=== PATIENT | female | born 1995 | race Caucasian/White ===

== ENCOUNTER 2017-03-17 22:36 | Emergency (ER) | payer MEDICAID ==
[~2017-03-17] VITALS: Ht 160 cm; Wt 99.3 kg
[2017-03-17 22:48] VITALS: Ht 160 cm; Wt 99.3 kg
[2017-03-18 02:20] VITALS: BP 108/57
== END 2017-03-18 02:21 | disposition home or self-care (01) ==
LOC: ED 22:36
DX: J45.909 Unspecified asthma, uncomplicated (principal)
CPT/HCPCS: J7512; J7613; J7644; Q0092

== ENCOUNTER 2017-06-30 18:16 | Emergency (ER) | payer MEDICAID ==
[~2017-06-30] VITALS: Ht 160 cm; Wt 90.7 kg
[2017-06-30 18:33] VITALS: Ht 160 cm; Wt 90.7 kg
[2017-06-30 20:01] VITALS: BP 126/83
== END 2017-06-30 20:01 | disposition home or self-care (01) ==
LOC: ED 18:16
DX: S00.83XA Contusion of other part of head, initial encounter (principal); J45.909 Unspecified asthma, uncomplicated; F20.9 Schizophrenia, unspecified; W22.01XA Walked into wall, initial encounter; Y93.89 Activity, other specified; Y92.89 Other specified places as the place of occurrence of the external cause; Y99.8 Other external cause status

== ENCOUNTER 2017-07-28 12:28 | Emergency (ER) | payer MEDICAID ==
[~2017-07-28] VITALS: Ht 160 cm; Wt 105.2 kg
[2017-07-28 12:31] VITALS: Ht 160 cm; Wt 105.2 kg
[2017-07-28 13:07] LABS: CARBON DIOXIDE 32.2 mmol/L (21-32); CHLORIDE SERUM 105 mmol/L (98-107); GFR1 > 60 mL/min; GLUCOSE SERUM 111 mg/dL (74-106); POTASSIUM SERUM 4.4 mmol/L (3.5-5.1); SODIUM SERUM 140 mmol/L (136-145)
[2017-07-28 13:57] VITALS: BP 118/72
== END 2017-07-28 13:57 | disposition home or self-care (01) ==
LOC: ED 12:28
PROVIDERS: Emergency Medicine
DX: J45.901 Unspecified asthma with (acute) exacerbation (principal); F20.9 Schizophrenia, unspecified
CPT/HCPCS: J7613; J7644; Q0092

== ENCOUNTER 2017-08-02 16:31 | Emergency (ER) | payer MEDICAID ==
[~2017-08-02] VITALS: Ht 157.5 cm; Wt 106.1 kg
[2017-08-02 16:45] VITALS: Ht 157.5 cm; Wt 106.1 kg
[2017-08-02 22:05] VITALS: BP 116/65
== END 2017-08-02 21:53 | disposition home or self-care (01) ==
LOC: ED 16:31
DX: R51 Headache (principal); F20.9 Schizophrenia, unspecified; J45.909 Unspecified asthma, uncomplicated

== ENCOUNTER 2017-09-17 18:21 | Emergency (ER) | payer MEDICAID ==
[~2017-09-17] VITALS: Ht 167.6 cm; Wt 110.2 kg
[2017-09-17 18:43] VITALS: Ht 167.6 cm; Wt 110.2 kg
[2017-09-17 19:19] VITALS: BP 139/76
== END 2017-09-17 19:19 | disposition home or self-care (01) ==
LOC: ED 18:21
DX: R42 Dizziness and giddiness (principal); T42.1X5A Adverse effect of iminostilbenes, initial encounter; J45.909 Unspecified asthma, uncomplicated; Y92.89 Other specified places as the place of occurrence of the external cause

== ENCOUNTER 2017-11-02 15:51 | Emergency (ER) | payer MEDICAID ==
[~2017-11-02] VITALS: Ht 160 cm; Wt 111.1 kg
[2017-11-02 15:57] VITALS: Ht 160 cm; Wt 111.1 kg
[2017-11-02 16:38] VITALS: BP 149/76
== END 2017-11-02 16:38 | disposition left against medical advice (07) ==
LOC: ED 15:51
DX: R33.9 Retention of urine, unspecified (principal); F20.9 Schizophrenia, unspecified; F41.9 Anxiety disorder, unspecified; J45.909 Unspecified asthma, uncomplicated; F29 Unspecified psychosis not due to a substance or known physiological condition

== ENCOUNTER 2017-11-08 18:41 | Emergency (ER) | payer MEDICAID ==
[~2017-11-08] VITALS: Ht 157.5 cm; Wt 111.1 kg
[2017-11-08 19:15] VITALS: BP 104/63; Ht 157.5 cm; Wt 111.1 kg
== END 2017-11-08 20:49 | disposition left against medical advice (07) ==
LOC: ED 18:41
DX: Z53.21 Procedure and treatment not carried out due to patient leaving prior to being seen by health care provider (principal)

== ENCOUNTER 2017-11-11 14:27 | Emergency (ER) | payer MEDICAID ==
[~2017-11-11] VITALS: Ht 160 cm; Wt 109.3 kg
[2017-11-11 14:37] VITALS: BP 130/60
== END 2017-11-11 16:34 | disposition left against medical advice (07) ==
LOC: ED 14:27
DX: Z53.21 Procedure and treatment not carried out due to patient leaving prior to being seen by health care provider (principal)

== ENCOUNTER 2018-02-10 14:19 | Emergency (ER) | payer MEDICAID ==
[~2018-02-10] VITALS: Ht 160 cm; Wt 108.4 kg
[2018-02-10 14:22] VITALS: BP 122/79; Ht 160 cm; Wt 108.4 kg
== END 2018-02-10 15:03 | disposition left against medical advice (07) ==
LOC: ED 14:19
DX: Z53.21 Procedure and treatment not carried out due to patient leaving prior to being seen by health care provider (principal)

== ENCOUNTER 2018-03-10 20:13 | Emergency (ER) | payer MEDICAID ==
[~2018-03-10] VITALS: Ht 160 cm; Wt 107.5 kg
[2018-03-10 20:18] VITALS: Ht 160 cm; Wt 107.5 kg
[2018-03-10 23:24] VITALS: BP 122/82
== END 2018-03-10 23:24 | disposition home or self-care (01) ==
LOC: ED 20:13
DX: L03.312 Cellulitis of back [any part except buttock and flank] (principal); J06.9 Acute upper respiratory infection, unspecified; J45.909 Unspecified asthma, uncomplicated; F41.9 Anxiety disorder, unspecified; F20.9 Schizophrenia, unspecified
CPT/HCPCS: J0696

== ENCOUNTER 2018-03-12 15:39 | Emergency (ER) | payer MEDICAID ==
[~2018-03-12] VITALS: Ht 160 cm; Wt 107.5 kg
[2018-03-12 15:50] VITALS: Ht 160 cm; Wt 107.5 kg
[2018-03-12 17:02] VITALS: BP 90/58
== END 2018-03-12 17:02 | disposition home or self-care (01) ==
LOC: ED 15:39
DX: L02.212 Cutaneous abscess of back [any part, except buttock and flank] (principal); J45.909 Unspecified asthma, uncomplicated; F20.9 Schizophrenia, unspecified; F29 Unspecified psychosis not due to a substance or known physiological condition; F41.9 Anxiety disorder, unspecified
CPT/HCPCS: J2001

== ENCOUNTER 2018-03-14 15:47 | Emergency (ER) | payer MEDICAID ==
[~2018-03-14] VITALS: Ht 162.6 cm; Wt 105.7 kg
[2018-03-14 16:23] VITALS: BP 124/79; Ht 162.6 cm; Wt 105.7 kg
== END 2018-03-14 19:36 | disposition left against medical advice (07) ==
LOC: ED 15:47
DX: Z53.21 Procedure and treatment not carried out due to patient leaving prior to being seen by health care provider (principal)

== ENCOUNTER 2018-03-15 10:38 | Emergency (ER) | payer MEDICAID ==
[~2018-03-15] VITALS: Ht 160 cm; Wt 103.9 kg
[2018-03-15 10:41] VITALS: Ht 160 cm; Wt 103.9 kg
[2018-03-15 11:54] VITALS: BP 117/74
== END 2018-03-15 11:54 | disposition home or self-care (01) ==
LOC: ED 10:38
DX: L02.212 Cutaneous abscess of back [any part, except buttock and flank] (principal); J45.909 Unspecified asthma, uncomplicated; F41.9 Anxiety disorder, unspecified

== ENCOUNTER 2018-06-27 12:27 | Emergency (ER) | payer MEDICAID ==
[~2018-06-27] VITALS: Ht 160 cm; Wt 109.8 kg
[2018-06-27 12:47] VITALS: BP 125/60; Ht 160 cm; Wt 109.8 kg
== END 2018-06-27 13:50 | disposition left against medical advice (07) ==
LOC: ED 12:27
DX: Z53.21 Procedure and treatment not carried out due to patient leaving prior to being seen by health care provider (principal)

== ENCOUNTER 2018-10-23 14:14 | Emergency (ER) | payer MEDICAID ==
[~2018-10-23] VITALS: Ht 162.6 cm; Wt 117.5 kg
[2018-10-23 14:19] VITALS: BP 138/54; Ht 162.6 cm; Wt 117.5 kg
== END 2018-10-23 17:11 | disposition home or self-care (01) ==
LOC: ED 14:14
DX: M79.622 Pain in left upper arm (principal); S80.862A Insect bite (nonvenomous), left lower leg, initial encounter; S80.861A Insect bite (nonvenomous), right lower leg, initial encounter; S50.862A Insect bite (nonvenomous) of left forearm, initial encounter; S50.861A Insect bite (nonvenomous) of right forearm, initial encounter; J45.909 Unspecified asthma, uncomplicated; F31.9 Bipolar disorder, unspecified; F20.9 Schizophrenia, unspecified; F29 Unspecified psychosis not due to a substance or known physiological condition; W57.XXXA Bitten or stung by nonvenomous insect and other nonvenomous arthropods, initial encounter; Y93.89 Activity, other specified; Y92.89 Other specified places as the place of occurrence of the external cause; Y99.8 Other external cause status

== ENCOUNTER 2019-01-05 17:43 | Emergency (ER) | payer MEDICAID ==
[~2019-01-05] VITALS: Ht 160 cm; Wt 121.6 kg
[2019-01-05 18:12] VITALS: Ht 160 cm; Wt 121.6 kg
[2019-01-05 20:17] VITALS: BP 121/73
== END 2019-01-05 20:17 | disposition home or self-care (01) ==
LOC: ED 17:43
DX: R07.89 Other chest pain (principal); R06.02 Shortness of breath; R19.7 Diarrhea, unspecified; F31.9 Bipolar disorder, unspecified; J45.909 Unspecified asthma, uncomplicated

== ENCOUNTER 2019-01-26 12:44 | Emergency (ER) | payer MEDICAID | END 2019-01-26 13:00 | disposition left against medical advice (07) | LOC: ED 12:44 | DX: Z53.21 Procedure and treatment not carried out due to patient leaving prior to being seen by health care provider (principal) ==

== ENCOUNTER 2019-01-26 14:22 | Emergency (ER) | payer MEDICAID ==
[~2019-01-26] VITALS: Ht 162.6 cm; Wt 113.4 kg
[2019-01-26 14:25] VITALS: Ht 162.6 cm; Wt 113.4 kg
[2019-01-26 14:56] VITALS: BP 121/76
== END 2019-01-26 16:29 | disposition home or self-care (01) ==
LOC: ED 14:22
DX: L25.9 Unspecified contact dermatitis, unspecified cause (principal); B37.9 Candidiasis, unspecified; J45.909 Unspecified asthma, uncomplicated; F41.9 Anxiety disorder, unspecified; F31.9 Bipolar disorder, unspecified
CPT/HCPCS: J1200; J7512

== ENCOUNTER 2019-02-21 15:49 | Emergency (ER) | payer MEDICAID ==
[~2019-02-21] VITALS: Ht 160 cm; Wt 112.9 kg
[2019-02-21 16:11] VITALS: Ht 160 cm; Wt 112.9 kg
[2019-02-21 17:45] VITALS: BP 131/69
== END 2019-02-21 17:45 | disposition home or self-care (01) ==
LOC: ED 15:49
DX: G56.03 Carpal tunnel syndrome, bilateral upper limbs (principal); K12.0 Recurrent oral aphthae; F31.9 Bipolar disorder, unspecified; F41.9 Anxiety disorder, unspecified; J45.909 Unspecified asthma, uncomplicated; Z91.030 Bee allergy status

== ENCOUNTER 2019-04-16 13:45 | Emergency (ER) | payer MEDICAID ==
[~2019-04-16] VITALS: Ht 160 cm; Wt 110.8 kg
[2019-04-16 14:22] VITALS: BP 128/65; Ht 160 cm; Wt 110.8 kg
== END 2019-04-16 14:54 | disposition home or self-care (01) ==
LOC: ED 13:45
DX: J06.9 Acute upper respiratory infection, unspecified (principal); J45.909 Unspecified asthma, uncomplicated

== ENCOUNTER 2019-07-13 14:40 | Emergency (ER) | payer MEDICAID ==
[~2019-07-13] VITALS: Ht 160 cm; Wt 109.8 kg
[2019-07-13 14:49] VITALS: Ht 160 cm; Wt 109.8 kg
[2019-07-13 15:00] VITALS: BP 121/64
== END 2019-07-13 15:00 | disposition home or self-care (01) ==
LOC: ED 14:40
DX: G56.01 Carpal tunnel syndrome, right upper limb (principal); J45.909 Unspecified asthma, uncomplicated; Z91.030 Bee allergy status

== ENCOUNTER 2020-01-07 13:44 | Emergency (ER) | payer MEDICAID ==
[~2020-01-07] VITALS: Ht 162.6 cm; Wt 106.6 kg
[2020-01-07 13:56] VITALS: Ht 162.6 cm; Wt 106.6 kg
[2020-01-07 14:30] LABS: BASOPHIL % 0.6 % (0-2); PLATELET COUNT 291 x10^3mcL (130-400); RED CELL DISTRIBUTION WIDTH 13.4 % (11.5-14.5)
[2020-01-07 15:03] LABS: CALCIUM 8.1 mg/dL (8.5-10.1); CARBON DIOXIDE 24.7 mmol/L (21-32); CHLORIDE SERUM 106 mmol/L (98-107); CREATININE SERUM 0.8 mg/dL (0.6-1.0); GFR1 > 60 mL/min; GLUCOSE SERUM 122 mg/dL (74-106); POTASSIUM SERUM 3.8 mmol/L (3.5-5.1); SODIUM SERUM 138 mmol/L (136-145)
[2020-01-07 15:07] LABS: ALKALINE PHOSPHATASE 76 U/L (46-116); ALT/SGPT 28 U/L (14-59); AST/SGOT 14 U/L (15-37); BILIRUBIN TOTAL 0.33 mg/dL (0.20-1.00); LIPASE 110 IU/L (73-393)
[2020-01-07 15:11] LABS: ALBUMIN 3.2 g/dL (3.4-5.0); TOTAL PROTEIN, SERUM 5.9 g/dL (6.4-8.2)
[2020-01-07 15:53] VITALS: BP 112/63
== END 2020-01-07 15:53 | disposition home or self-care (01) ==
LOC: ED 13:44
PROVIDERS: Emergency Medicine
DX: K29.70 Gastritis, unspecified, without bleeding (principal); R03.0 Elevated blood-pressure reading, without diagnosis of hypertension; J45.909 Unspecified asthma, uncomplicated; Z91.030 Bee allergy status
CPT/HCPCS: Q0092

== ENCOUNTER 2020-01-21 16:43 | Emergency (ER) | payer MEDICAID ==
[2020-01-21 17:50] VITALS: BP 102/56
[2020-01-21 18:05] LABS: CALCIUM 8.3 mg/dL (8.5-10.1); CARBON DIOXIDE 24.7 mmol/L (21-32); CHLORIDE SERUM 100 mmol/L (98-107); CREATININE SERUM 0.8 mg/dL (0.6-1.0); GFR1 > 60 mL/min; GLUCOSE SERUM 102 mg/dL (74-106); POTASSIUM SERUM 3.5 mmol/L (3.5-5.1); SODIUM SERUM 133 mmol/L (136-145)
[2020-01-21 18:06] LABS: BASOPHIL % 0.3 % (0-2); PLATELET COUNT 291 x10^3mcL (130-400); RED CELL DISTRIBUTION WIDTH 13.8 % (11.5-14.5)
[2020-01-21 18:10] LABS: ALBUMIN 3.5 g/dL (3.4-5.0); ALKALINE PHOSPHATASE 93 U/L (46-116); ALT/SGPT 25 U/L (14-59); AST/SGOT 22 U/L (15-37); BILIRUBIN TOTAL 0.5 mg/dL (0.20-1.00); LIPASE 88 IU/L (73-393); TOTAL PROTEIN, SERUM 6.6 g/dL (6.4-8.2)
== END 2020-01-21 18:41 | disposition home or self-care (01) ==
LOC: ED 16:43
PROVIDERS: Emergency Medicine
DX: K29.70 Gastritis, unspecified, without bleeding (principal); R51.9 Headache, unspecified; J45.909 Unspecified asthma, uncomplicated; Z91.030 Bee allergy status

== ENCOUNTER 2020-05-21 12:46 | Emergency (ER) | payer MEDICAID, SELFPAY ==
[~2020-05-21] VITALS: Ht 162.6 cm; Wt 98.0 kg
[2020-05-21 12:48] VITALS: BP 120/76; Ht 162.6 cm; Wt 98.0 kg
== END 2020-05-21 14:47 | disposition home or self-care (01) ==
LOC: ED 12:46
DX: L02.211 Cutaneous abscess of abdominal wall (principal); Z20.822 Contact with and (suspected) exposure to COVID-19
CPT/HCPCS: J2001; U0003